=== PATIENT | female | born 1935 | race African-American/Black ===

== ENCOUNTER 2017-09-12 10:03 | Day surgery (SDC) | payer OTHER ==
[2017-09-09 10:31] VITALS: BMI 44.2
[2017-09-12] MEDS ORDERED: DEXAMETHASONE SOD PHOSPHATE 4 MG/1 ML VIAL ONE (10:12)
[2017-09-12] MEDS ORDERED: PROPOFOL 20 ML ONE ×2 (10:12)
[2017-09-12] MEDS ORDERED: LIDOCAINE HCL 1%, 10 MG/ML (20ML VIAL) NR ONE (12:12)
[2017-09-12] MEDS ORDERED: LIDOCAINE HCL 1%, 10 MG/ML (20ML VIAL) ONE (12:13)
--- NOTE | 2017-09-12 12:56 | SURG ---
Surgery French Binder Note French Binder: Chivo Isaac PA-C Date of Service: 09/12/17 Diagnosis: Left breast invasive ductal carcinoma Procedure: Left breast lumpectomy I was present for the entirety of the operative procedure. For further detail, please refer to operative report.
--- NOTE | 2017-09-12 13:12 | OP ---
Operative Note - Note: Operative Date: 09/12/17 Pre-Operative Diagnosis: Left breast invasive ductal carcinoma Operation: Left breast lumpectomy Anesthesia: Local Estimated Blood Loss (mls): 50 Fluid Volume Replaced (mls): 900 Operative Report Dictated: Yes
[2017-09-12 13:54] VITALS: TEMP 98.5
[2017-09-12 17:09] VITALS: BP 153/70; PULSE 76
--- NOTE | 2017-09-13 09:48 | OP ---
DATE OF OPERATION: 09/12/2017 PREOPERATIVE DIAGNOSIS: Left breast cancer. POSTOPERATIVE DIAGNOSIS: Left breast cancer. PROCEDURE: Left breast lumpectomy. SURGEON: Taty Ferrara MD ANESTHESIA: Local, IV sedation. ESTIMATED BLOOD LOSS: 50 mL DRAINS: None. COMPLICATIONS: None. This was a sterile procedure. INDICATIONS: The patient presented with a palpable mass in the upper left breast. A needle core biopsy showed a moderately differentiated, invasive duct carcinoma that was ER/MT positive, HER2/raoul negative. After a discussion with the family, given her age and comorbidities, the decision was to go ahead with a lumpectomy and start her on antiestrogen medication. The procedure was discussed with her, and all of her questions answered. PROCEDURE IN DETAIL: Patient brought to [facility] in [place], taken into the operating room, and after IV sedation, the left breast was prepped and draped in usual sterile fashion. The area in the upper left breast around the mass was anesthetized with 1% lidocaine without epinephrine. An ellipse of skin was taken to include the mass as it was partially tethered to the skin. This was excised en bloc with a large, wide lumpectomy, tagged with a long stitch lateral, short stitch superior, sent to Pathology for permanent section. Hemostasis was assured with electrocautery. The parenchyma was approximated with interrupted 2-0 Vicryl. Skin approximated with interrupted 2-0 Vicryl running and 4-0 Monocryl. A sterile dressing with Tegaderm and 4 x 4's applied. She tolerated the procedure well and left the office in good condition. Rainer [id number]
--- NOTE | 2017-09-15 15:47 | PATH ---
Surgical Pathology Report Patient Name: ARLEN CAN [facility] Rec. #: [id number] /Age/Gender: 1935 (Age: 82) / F Account: [id number] Location: [facility] SURGICAL Taken: 09/12/2017 Received: 09/12/2017 Reported: 09/15/2017 Physicians: Taty Ferrara M.D. Specimen(s) Received LEFT BREAST MASS Clinical History Left core biopsy (elsewhere)-grade 2 invasive ductal, ER +, CT +, [id number] negative Final Diagnosis BREAST, LEFT, LUMPECTOMY: INVASIVE DUCTAL CARCINOMA, MODERATELY DIFFERENTIATED (TUBULE SCORE: 3/3, NUCLEAR GRADE: 2/3, MITOTIC SCORE: 2/3; TOTAL ABBY SCORE: 7/9) WITH PAPILLARY AND MICROPAPILLARY FEATURES. INVASIVE CARCINOMA MEASURES 5.2 CM IN GREATEST DIMENSION (GROSS MEASUREMENT). DUCTAL CARCINOMA IN SITU (DCIS), CRIBRIFORM AND SOLID TYPES, INTERMEDIATE NUCLEAR GRADE. LYMPHOVASCULAR INVASION IDENTIFIED. SURGICAL MARGINS ARE UNINVOLVED BY CARCINOMA; INVASIVE CARCINOMA IS AT 2 MM FROM THE CLOSEST ANTERIOR/SKIN AND 3 MM FROM INFERIOR MARGINS; DCIS IS 8 MM FROM CLOSEST SUPERIOR MARGIN. SKIN (DERMIS) IS FOCALLY INVOLVED BY INVASIVE CARCINOMA. REMAINDER OF BREAST TISSUE SHOWS FIBROCYSTIC CHANGES AND RARE MICROCALCIFICATIONS. PATHOLOGIC STAGE (pTNM): pT3 pNx. SEE INVASIVE CARCINOMA CASE SUMMARY BELOW. Comments Breast Invasive Carcinoma: Surgical Pathology Case Summary (Based on AJCC TNM 8 th edition) Procedure _X_ Excision (less than total mastectomy) Specimen Laterality _X_ Left Tumor Size _X_ Greatest dimension of largest invasive focus >1 mm (specify exact measurement) (millimeters): _5.2_ cm (gross measurement) Histologic Type _X__ Invasive ductal carcinoma with papillary and micropapillary features Histologic Grade (Abby Histologic Score) Glandular (Acinar)/Tubular Differentiation _X_ Score 3 (<10% of tumor area forming glandular/tubular structures) Nuclear Pleomorphism _X Score 2 Mitotic Rate _X_ Score 2 Overall Grade _X__ Grade 2 (score of 7) Tumor Focality _X_ Single focus of invasive carcinoma Ductal Carcinoma In Situ (DCIS) _X__ DCIS is present in specimen _X_ Negative for extensive intraductal component (EIC) Tumor Extension Skin _X_ Invasive carcinoma directly invades into the dermis without skin ulceration Margins Invasive Carcinoma Margins _X_ Uninvolved by invasive carcinoma Distance from closest margin (millimeters): 2 and 3 mm Closest margin: anterior/skin (2 mm), inferior (3 mm) DCIS Margins _X _Uninvolved by DCIS Distance from closest margin (millimeters): 8 mm Closest margin: Superior Regional Lymph Nodes _X_ No lymph nodes submitted or found Treatment Effect _X_ No known presurgical therapy Lymphovascular Invasion _X_ Present Pathologic Stage Classification (pTNM, AJCC 8th Edition) Primary Tumor (Invasive Carcinoma) (pT) _X_ pT3: Tumor >50 mm in greatest dimension Category (pN) _X_ pNX: Regional lymph nodes cannot be assessed Biomarker Studies Results of ER and CT studies performed on this specimen (block# 4) at [facility] are as follows: ER (clone [id number] mouse monoclonal antibody by [employer]): 95% nuclear staining with moderate to strong intensity (Positive). CT (clone16 mouse monoclonal antibody by [employer]): 5% nuclear staining with weak intensity (Positive). Her2 & Ki-67 studies are pending and will be reported separately. Positive and negative controls (internal if applicable) show appropriate results. Formalin fixation and cold ischemic times are within current ASCO/CAP recommendations for ER, CT and Her2 testing. . Electronically Signed Charity Denny M.D. Gross Description Received in formalin, labeled "left breast lumpectomy," is an 11.2 x 6.5 x 6.5 cm. colón-yellow, irregular, portion of fibroadipose tissue which is surfaced by a 9.2 x 4.0 cm colón-brown, elliptical, unremarkable portion of skin. There is no needle localization wire present. There is a short suture marking the superior aspect and a long suture marking the lateral aspect, per the surgeon. The specimen is inked as follows: Superior blue; inferior green; lateral red; medial yellow; deep black. The specimen is serially sectioned from medial to lateral. Sectioning reveals a 5.2 x 4.5 x 3.3 cm colón, lobulated, ill-defined, indurated mass focally abutting the inferior margin and skin. The mass is focally 0.3 cm from the superior margin. The mass is 0.8 cm from the deep margin. Sanitation Manager sections are submitted in 15 cassettes as follows: 1-6-one full face section of mass (1-mass with skin and inferior margin; 2-mass with inferior margin; 3-mass with skin; 4-mass only; 5-mass with skin and superior margin; 6-superior margin); 7-additional mass with skin; 5-9-fprtdutdgu mass with inferior margin; 00-85-fqsvyqrbng mass with superior margin; 12-13-mass with deep margin; 14-medial margin; 15-lateral margin. Time to formalin fixation: 26 minutes Total formalin fixation time: Approximately 29 hours. 09/13/2017 [facility]2017
== END 2017-09-12 17:08 | disposition home or self-care (01) ==
LOC: JASU-SURG 10:03
PROVIDERS: ATTEND Surgery
PROC: 0HBU0ZZ Excision of Left Breast, Open Approach (ICD-10-PCS; principal; 2017-09-12 11:00)
DX: C50.911 Malignant neoplasm of unspecified site of right female breast (principal)
CPT/HCPCS: 88307-TC; 88342-TC; 94760